=== PATIENT | male | born 1950 | race Caucasian/White ===

== ENCOUNTER → 2017-10-20 | Outpatient (CLI) | payer MEDICARE ==
[~2017-10-20] MED LIST: AEC81 PO; ASCO10007 PO; CA/D1TAB7 PO; DOCU-132 PO; DUTA1CPM4 PO; FISH1CAP50 PO; LACT1CAP65 PO; LORA10TA60 PO; METOPROLOL ER PO; MULT-1258 PO; ROSU5TAB PO; TRAM50TA4 PO
== END | disposition home or self-care (01) ==
LOC: RAH 11:04
PROVIDERS: ATTEND Physical Medicine & Rehabilitation
DX: M16.11 Unilateral primary osteoarthritis, right hip (principal)
CPT/HCPCS: 72170; 73521

== ENCOUNTER → 2017-10-25 | Outpatient (CLI) | payer MEDICARE | LOC: RAH 13:42 | PROVIDERS: ATTEND Physical Medicine & Rehabilitation | DX: M50.322 Other cervical disc degeneration at C5-C6 level (principal); M25.78 Osteophyte, vertebrae; M48.02 Spinal stenosis, cervical region | CPT/HCPCS: 72141 ==